=== PATIENT | female | born 1970 | race Caucasian/White ===

== ENCOUNTER → 2021-04-14 | Outpatient (CLI) | payer BC, OTHER | END | disposition home or self-care (01) | LOC: CARD 08:47 | PROVIDERS: ATTEND Obstetrics & Gynecology Reproductive Endocrinology | DX: O09.519 Supervision of elderly primigravida, unspecified trimester (principal); Z3A.00 Weeks of gestation of pregnancy not specified | CPT/HCPCS: 93017 ==